=== PATIENT | male | born 1985 | race African-American/Black ===

== ENCOUNTER 2016-12-08 14:13 | Inpatient (IN) | payer MEDICARE, MEDICAID ==
[~2016-12-08] VITALS: Ht 195.6 cm; Wt 114.8 kg
[~2016-12-08 14:13] MED LIST: LITH600 PO
[2016-12-08 17:05] VITALS: BP 151/91
[2016-12-08] MEDS ORDERED: PALI234D IM (17:09)
[2016-12-08 17:29] VITALS: BP 148/92
[2016-12-08] MEDS: LORazepam 2 MG TABLET PO PRN (17:50)
[2016-12-08] MEDS: HALOPERIDOL 5 MG TABLET PO PRN (20:49)
[2016-12-08] MEDS: LITHIUM CARBONATE 300 MG CAPSULE PO SCH (20:49)
[2016-12-08] MEDS: ZOLPIDEM TARTRATE 10 MG TABLET PO PRN (20:49)
[2016-12-08 22:29] VITALS: BP 116/68
[2016-12-09] MEDS: HALOPERIDOL 5 MG TABLET PO PRN ×4 (05:16→17:22)
[2016-12-09] MEDS: LORazepam 2 MG TABLET PO PRN ×4 (05:16→17:22)
[2016-12-09 06:39] VITALS: BP 122/86
[2016-12-09 07:33] LABS: BASOPHILS # (AUTO) 0.05 K/uL (0.00-0.20); BASOPHILS % (AUTO) 0.7 % (0.0-2.0); EOSINOPHILS % (AUTO) 5.52 % (1.0-6.0); HEMATOCRIT 42.8 % (41-53); HEMOGLOBIN 14.5 g/dL (13.5-17.5); LYMPHOCYTES # (AUTO) 1.8 K/uL (1.0-4.8); LYMPHOCYTES % (AUTO) 24.2 % (22.0-44.0); MEAN CORPUSCULAR HEMOGLOBIN 31.2 pg (26.0-34.0); MEAN CORPUSCULAR HGB CONC 33.8 G/dL (31.0-37.0); MEAN CORPUSCULAR VOLUME 93 fL (80-100); MONOCYTES # (AUTO) 0.5 K/uL (0.1-1.0); MONOCYTES % (AUTO) 7.3 % (2.0-9.0); NEUTROPHILS # (AUTO) 4.6 K/uL (1.8-7.7); NEUTROPHILS % (AUTO) 62.4 % (40.0-70.0); PLATELET COUNT (AUTO) 198 K/uL (150-450); RED BLOOD CELL COUNT(AUTO) 4.63 MIL/uL (4.50-5.90); RED CELL DISTRIBUTION WIDTH 13.9 % (11.5-14.5); WHITE BLOOD COUNT (AUTO) 7.3 K/uL (4.5-11.0)
[2016-12-09 07:52] LABS: ALANINE AMINOTRANSFERASE 33 U/L (12-78); ALBUMIN 3.6 g/dL (3.4-5.0); ANION GAP 7 mmol/L (8-16); ASPARTATE AMINOTRANSFERASE 52 U/L (15-37); BILIRUBIN,TOTAL 0.5 mg/dL (0.1-1.0); CALCIUM, TOTAL 8.8 mg/dL (8.8-10.5); CARBON DIOXIDE 29 mmol/L (22-29); CHLORIDE 105 mmol/L (98-107); CREATININE 1.17 mg/dL (0.60-1.30); GLOMERULAR FILTR. RATE CALC > 60 mL/min (>60); POTASSIUM 4.5 mmol/L (3.5-5.1); SODIUM SERUM 141 mmol/L (136-145); UREA NITROGEN, BLOOD 16 mg/dL (7-18)
[2016-12-09] MEDS: LITHIUM CARBONATE 300 MG CAPSULE PO SCH ×2 (08:32→16:52)
[2016-12-09 16:00] VITALS: BP 142/84
[2016-12-09] MEDS ORDERED: ACETAMINOPHEN 325 MG TABLET PO PRN (21:30)
[2016-12-09] MEDS ORDERED: IBUPROFEN 400 MG TABLET PO PRN (21:30)
[2016-12-09] MEDS: ZOLPIDEM TARTRATE 10 MG TABLET PO PRN (23:42)
[2016-12-10 01:02] VITALS: BP 135/70
[2016-12-10] MEDS: LORazepam 2 MG TABLET PO PRN ×4 (04:54→23:44)
[2016-12-10] MEDS: HALOPERIDOL 5 MG TABLET PO PRN ×3 (08:13→23:44)
[2016-12-10] MEDS: LITHIUM CARBONATE 300 MG CAPSULE PO SCH ×2 (08:13→17:30)
[2016-12-10 08:25] VITALS: BP 141/84
[2016-12-10 09:10] LABS: CHOL/HDL RATIO 3.3 (4.2-7.3); THYROID STIMULATING HORMONE 2.64 uIU/mL (0.36-3.74)
[2016-12-10 09:19] LABS: HEMOGLOBIN A1C 5.3 % (4.5-6.2)
[2016-12-10 09:25] LABS: THYROID STIMULATING HORMONE 2.46 uIU/mL (0.36-3.74)
[2016-12-10 16:00] VITALS: BP 144/88
[2016-12-10] MEDS: ZOLPIDEM TARTRATE 10 MG TABLET PO PRN (20:27)
[2016-12-11 01:40] VITALS: BP 145/90
[2016-12-11 08:39] VITALS: BP 135/87
[2016-12-11] MEDS: LITHIUM CARBONATE 300 MG CAPSULE PO SCH ×2 (08:45→16:02)
[2016-12-11] MEDS: LORazepam 2 MG TABLET PO PRN ×2 (08:57→16:02)
[2016-12-11] MEDS ORDERED: PALIPERIDONE PALMITATE 234 MG/1.5 ML SYRINGE IM ONE (11:00)
[2016-12-11] MEDS: ACYCLOVIR 200 MG CAPSULE PO SCH ×2 (12:16→16:02)
[2016-12-11] MEDS: HALOPERIDOL 5 MG TABLET PO PRN (16:02)
[2016-12-11 16:10] VITALS: BP 129/73
[2016-12-12 04:42] VITALS: BP 132/86
[2016-12-12] MEDS: LITHIUM CARBONATE 300 MG CAPSULE PO SCH (07:26)
[2016-12-12] MEDS: ACYCLOVIR 200 MG CAPSULE PO SCH (07:27)
[2016-12-12] MEDS ORDERED: LITH300C3 PO (07:42)
[2016-12-12] MEDS ORDERED: ACYC200C PO (07:42)
[2016-12-12 08:10] VITALS: BP 135/82
[2016-12-12] MEDS ORDERED: PALIPERIDONE PALMITATE 234 MG/1.5 ML SYRINGE IM ONE (09:00)
[2016-12-14] MEDS ORDERED: PALIPERIDONE PALMITATE 234 MG/1.5 ML SYRINGE IM ONE (08:15)
== END 2016-12-12 10:30 | disposition home or self-care (01) | DRG 885 ==
LOC: B3A 16:52 → EDSTATUS 16:57
DX: F31.2 Bipolar disorder, current episode manic severe with psychotic features (principal); F19.10 Other psychoactive substance abuse, uncomplicated; E78.5 Hyperlipidemia, unspecified; B00.9 Herpesviral infection, unspecified; R74.0 Nonspecific elevation of levels of transaminase and lactic acid dehydrogenase [LDH]
CPT/HCPCS: 83036; 84443

== ENCOUNTER 2016-12-14 15:20 | Inpatient (IN) | payer MEDICARE, MEDICAID ==
[~2016-12-14] VITALS: Ht 195.6 cm; Wt 113.9 kg
[~2016-12-14 15:20] MED LIST changes: +ACYC200C PO; +LITH300C3 PO; -LITH600 PO; +PALI234D IM
[2016-12-14 19:57] VITALS: BP 147/81
[2016-12-14] MEDS: LORazepam 2 MG TABLET PO PRN (19:59)
[2016-12-14] MEDS: HALOPERIDOL 5 MG TABLET PO PRN (19:59)
[2016-12-15 07:06] VITALS: BP 123/76
[2016-12-15 08:15] VITALS: BP 136/85
[2016-12-15] MEDS: HALOPERIDOL 5 MG TABLET PO PRN ×2 (08:18→15:46)
[2016-12-15] MEDS: ACYCLOVIR 200 MG CAPSULE PO SCH ×2 (08:18→16:11)
[2016-12-15] MEDS: LORazepam 2 MG TABLET PO PRN ×2 (08:18→15:46)
[2016-12-15 08:29] LABS: BASOPHILS # (AUTO) 0.03 K/uL (0.00-0.20); BASOPHILS % (AUTO) 0.3 % (0.0-2.0); EOSINOPHILS # (AUTO) 0.45 K/uL (0.00-0.70); EOSINOPHILS % (AUTO) 5.47 % (1.0-6.0); HEMATOCRIT 44.6 % (41-53); HEMOGLOBIN 14.9 g/dL (13.5-17.5); LYMPHOCYTES # (AUTO) 1.8 K/uL (1.0-4.8); LYMPHOCYTES % (AUTO) 21.6 % (22.0-44.0); MEAN CORPUSCULAR HEMOGLOBIN 31.7 pg (26.0-34.0); MEAN CORPUSCULAR HGB CONC 33.4 G/dL (31.0-37.0); MEAN CORPUSCULAR VOLUME 95 fL (80-100); MONOCYTES # (AUTO) 0.3 K/uL (0.1-1.0); MONOCYTES % (AUTO) 3.7 % (2.0-9.0); NEUTROPHILS # (AUTO) 5.7 K/uL (1.8-7.7); NEUTROPHILS % (AUTO) 68.9 % (40.0-70.0); PLATELET COUNT (AUTO) 188 K/uL (150-450); RED CELL DISTRIBUTION WIDTH 14.1 % (11.5-14.5); WHITE BLOOD COUNT (AUTO) 8.2 K/uL (4.5-11.0)
[2016-12-15 09:18] LABS: HEMOGLOBIN A1C 5.4 % (4.5-6.2)
[2016-12-15] MEDS: LITHIUM CARBONATE 300 MG CAPSULE PO SCH ×2 (09:33→16:11)
[2016-12-15 10:04] LABS: ALANINE AMINOTRANSFERASE 39 U/L (12-78); ALBUMIN 3.8 g/dL (3.4-5.0); ANION GAP 10 mmol/L (8-16); ASPARTATE AMINOTRANSFERASE 69 U/L (15-37); BILIRUBIN,TOTAL 0.6 mg/dL (0.1-1.0); CARBON DIOXIDE 28 mmol/L (22-29); CHLORIDE 105 mmol/L (98-107); CHOL/HDL RATIO 2.7 (4.2-7.3); CREATININE 1.33 mg/dL (0.60-1.30); GLOMERULAR FILTR. RATE CALC > 60 mL/min (>60); POTASSIUM 4.2 mmol/L (3.5-5.1); SODIUM SERUM 143 mmol/L (136-145); THYROID STIMULATING HORMONE 3.65 uIU/mL (0.36-3.74); TOTAL PROTEIN, SERUM 7.1 g/dL (6.4-8.2); UREA NITROGEN, BLOOD 16 mg/dL (7-18)
[2016-12-15 16:00] VITALS: BP 138/83
[2016-12-15] MEDS ORDERED: ACETAMINOPHEN 325 MG TABLET PO PRN (21:00)
[2016-12-16 05:40] VITALS: BP 141/85
[2016-12-16] MEDS: LORazepam 2 MG TABLET PO PRN ×3 (05:42→16:29)
[2016-12-16] MEDS: HALOPERIDOL 5 MG TABLET PO PRN (05:42)
[2016-12-16 08:14] VITALS: BP 124/88
[2016-12-16] MEDS: LITHIUM CARBONATE 300 MG CAPSULE PO SCH ×2 (08:40→16:22)
[2016-12-16] MEDS: ACYCLOVIR 200 MG CAPSULE PO SCH ×2 (08:40→16:22)
[2016-12-16 16:00] VITALS: BP 133/83
[2016-12-16] MEDS: NICOTINE 7 MG/24 HOUR PATCH TD SCH (16:22)
[2016-12-17 05:17] VITALS: BP 142/88
[2016-12-17 08:15] VITALS: BP 143/92
[2016-12-17] MEDS: LORazepam 2 MG TABLET PO PRN ×4 (08:53→21:41)
[2016-12-17] MEDS: ACYCLOVIR 200 MG CAPSULE PO SCH ×2 (08:54→16:02)
[2016-12-17] MEDS: LITHIUM CARBONATE 300 MG CAPSULE PO SCH ×2 (08:54→16:02)
[2016-12-17] MEDS: IBUPROFEN 400 MG TABLET PO PRN (08:56)
[2016-12-17] MEDS: NICOTINE 7 MG/24 HOUR PATCH TD SCH (08:57)
[2016-12-17 16:00] VITALS: BP 130/87
[2016-12-18 01:51] VITALS: BP 144/92
[2016-12-18] MEDS: ZOLPIDEM TARTRATE 10 MG TABLET PO PRN (01:52)
[2016-12-18] MEDS: LITHIUM CARBONATE 300 MG CAPSULE PO SCH ×2 (08:37→16:30)
[2016-12-18 08:38] VITALS: BP 133/81
[2016-12-18] MEDS: ACYCLOVIR 200 MG CAPSULE PO SCH ×2 (08:38→16:30)
[2016-12-18] MEDS: NICOTINE 7 MG/24 HOUR PATCH TD SCH (08:38)
[2016-12-18 16:00] VITALS: BP 136/82
[2016-12-18] MEDS: LORazepam 2 MG TABLET PO PRN ×2 (16:31→20:56)
[2016-12-18] MEDS: HALOPERIDOL 5 MG TABLET PO PRN (16:31)
[2016-12-19] MEDS: LORazepam 2 MG TABLET PO PRN ×4 (02:32→20:21)
[2016-12-19] MEDS: ZOLPIDEM TARTRATE 10 MG TABLET PO PRN (02:32)
[2016-12-19 06:00] VITALS: BP 124/84
[2016-12-19 08:00] VITALS: BP 137/83
[2016-12-19] MEDS: ACYCLOVIR 200 MG CAPSULE PO SCH ×2 (08:53→16:46)
[2016-12-19] MEDS: NICOTINE 7 MG/24 HOUR PATCH TD SCH (08:53)
[2016-12-19] MEDS: LITHIUM CARBONATE 300 MG CAPSULE PO SCH ×2 (08:53→16:46)
[2016-12-19 16:00] VITALS: BP 125/74
[2016-12-20] MEDS: HALOPERIDOL 5 MG TABLET PO PRN (01:04)
[2016-12-20] MEDS: ZOLPIDEM TARTRATE 10 MG TABLET PO PRN (01:04)
[2016-12-20 01:05] VITALS: BP 134/78
[2016-12-20] MEDS: IBUPROFEN 400 MG TABLET PO PRN (01:05)
[2016-12-20] MEDS: ACYCLOVIR 200 MG CAPSULE PO SCH ×2 (08:14→16:19)
[2016-12-20] MEDS: LITHIUM CARBONATE 300 MG CAPSULE PO SCH ×2 (08:15→16:19)
[2016-12-20] MEDS: NICOTINE 7 MG/24 HOUR PATCH TD SCH (08:15)
[2016-12-20 08:18] VITALS: BP 107/60
[2016-12-20] MEDS: LORazepam 2 MG TABLET PO PRN ×2 (08:22→16:20)
[2016-12-20 16:30] VITALS: BP 138/79
[2016-12-21 05:37] VITALS: BP 135/89
[2016-12-21 08:47] VITALS: BP 127/78
[2016-12-21] MEDS: LITHIUM CARBONATE 300 MG CAPSULE PO SCH ×2 (10:21→15:56)
[2016-12-21] MEDS: ACYCLOVIR 200 MG CAPSULE PO SCH ×2 (10:21→15:56)
[2016-12-21] MEDS: NICOTINE 7 MG/24 HOUR PATCH TD SCH (10:26)
[2016-12-21 16:17] VITALS: BP 132/79
[2017-01-09] MEDS ORDERED: PALIPERIDONE PALMITATE 234 MG/1.5 ML SYRINGE IM SCH (09:00)
== END 2016-12-21 17:20 | disposition home or self-care (01) | DRG 885 ==
LOC: B3A 18:21
DX: F31.2 Bipolar disorder, current episode manic severe with psychotic features (principal); F12.90 Cannabis use, unspecified, uncomplicated; F19.10 Other psychoactive substance abuse, uncomplicated; E78.5 Hyperlipidemia, unspecified; F10.10 Alcohol abuse, uncomplicated; R74.0 Nonspecific elevation of levels of transaminase and lactic acid dehydrogenase [LDH]; S90.822A Blister (nonthermal), left foot, initial encounter; S90.821A Blister (nonthermal), right foot, initial encounter; X58.XXXA Exposure to other specified factors, initial encounter; Y93.89 Activity, other specified; Y92.89 Other specified places as the place of occurrence of the external cause; Y99.8 Other external cause status; Z79.899 Other long term (current) drug therapy
CPT/HCPCS: 83036; 84439; 84443; 87081